=== PATIENT | female | born 1960 | race Caucasian/White ===

== ENCOUNTER 2017-10-09 00:28 | Emergency (ER) | payer BC ==
[~2017-10-09] VITALS: Ht 160 cm; Wt 69.8 kg
[~2017-10-09 00:28] MED LIST: Acetaminophen1 EAC2 PO; Aspir 8181 MG PO; CHOL10002; CRANBERRY250 MG; LEVSOD25 PO; LORA.5 PO; MECL25 PO; OMEP20ER PO; Prinivil10 MG PO; RIFA300 PO; TYLECOD3 PO
[2017-10-09 01:02] LABS: Source, Urine Clean Catch
[2017-10-09 01:04] LABS: Bilirubin, Urine Neg (Neg); Blood, Urine 5+ (Neg); Glucose Qualitative, Urine Neg (Neg); Ketones, Urine Neg (Neg); Leukocyte Esterase, Urine 3+ (Neg); Nitrite, Urine Neg (Neg); Protein, Urine 1+ (Neg); Specific Gravity, Urine 1.005 (1.003-1.022); Urobilinogen, Urine NORM (Normal); pH, Urine 6.5 (5.0-8.0)
[2017-10-09] MEDS ORDERED: Pyridium200 MG PO (01:04)
[2017-10-09] MEDS ORDERED: Cefpodoxime Pr100 MG PO (01:04)
[2017-10-09 01:18] LABS: Appearance, Urine Hazy (Clear); Bacteria Few /hpf; Color, Urine Pale Yellow (P-Yellow); Red Blood Cells, Urine 0-2 /hpf (0-2); Squamous Epithelial Cells Rare /hpf (Few); White Blood Cells, Urine TNTC /hpf (0-5)
[2018-03-04] MEDS ORDERED: ASPI81CH PO (12:18)
[2018-03-04] MEDS ORDERED: ACYC400 (12:18)
[2018-03-04] MEDS ORDERED: Advil Pm Liqui1 EACH PO (12:19)
[2018-03-04] MEDS ORDERED: VITAMIN B-121000 MCG (12:20)
[2018-03-04] MEDS ORDERED: TYLECOD3 (12:21)
[2018-06-17] MEDS ORDERED: B Complex #11 EACH PO (11:35)
[2018-06-17] MEDS ORDERED: Aspir 8181 MG PO (11:35)
[2018-06-25] MEDS ORDERED: ACYC400 PO (07:17)
== END 2017-10-09 01:37 | disposition home or self-care (01) ==
LOC: ER 00:28
PROVIDERS: Physician Assistant
DX: N39.0 Urinary tract infection, site not specified (principal); Z88.2 Allergy status to sulfonamides; Z88.1 Allergy status to other antibiotic agents; Z88.8 Allergy status to other drugs, medicaments and biological substances; Z79.899 Other long term (current) drug therapy; I10 Essential (primary) hypertension; E03.9 Hypothyroidism, unspecified
CPT/HCPCS: 81001; 87077; 87086; 87186; 99283

== ENCOUNTER 2019-07-15 06:16 | Day surgery (SDC) | payer BC ==
[~2019-07-15 06:16] MED LIST changes: +ACYC400; +ACYC400 PO; +ASPI81CH PO; +Advil Pm Liqui1 EACH PO; +Aspir 8181 MG; +B Complex #11 EACH PO; +Cefpodoxime Pr100 MG PO; +Celebrex200 MG; +Pyridium200 MG PO; +TYLECOD3; +VITAMIN B-121000 MCG
--- NOTE | 2019-07-15 07:09 | NUR ---
07/15/19 0709 KEVIN HUTCHINSON PATIENT'S SPOUSE AT BEDSIDE. PATIENT READY FOR OR. POST OP TEACHING PERFORMED WITH PATIENT AND SPOUSE - DENY QUESTIONS ABOUT TEACHING.
--- NOTE | 2019-07-15 08:17 | NUR ---
07/15/19 0817 Tatiana Roberts INTRASCALING BLOCK PLACED IN OR WITHOUT DIFFICULTY. PT TOLERATED PROCEDURE WELL.
--- NOTE | 2019-07-15 10:10 | NUR ---
07/15/19 1010 [place] Walls UP TO [facility] FOR STOOL.
== END 2019-07-15 11:15 | disposition home or self-care (01) ==
LOC: ORSCSDS 06:16
PROVIDERS: Orthopaedic Surgery
PROC: 0LQ24ZZ Repair Left Shoulder Tendon, Percutaneous Endoscopic Approach (ICD-10-PCS; principal; 2019-07-15 07:30)
PROC: 0RNK4ZZ Release Left Shoulder Joint, Percutaneous Endoscopic Approach (ICD-10-PCS; principal; 2019-07-15 07:30)
PROC: 0RBK4ZZ Excision of Left Shoulder Joint, Percutaneous Endoscopic Approach (ICD-10-PCS; principal; 2019-07-15 07:30)
DX: M75.122 Complete rotator cuff tear or rupture of left shoulder, not specified as traumatic (principal); M75.42 Impingement syndrome of left shoulder; M75.22 Bicipital tendinitis, left shoulder; I10 Essential (primary) hypertension; G47.33 Obstructive sleep apnea (adult) (pediatric); Z79.899 Other long term (current) drug therapy
CPT/HCPCS: C1713; J0171; J0690; J2250; J2370; J2405; J2704; J2765; J2795; J3010; J7120

== ENCOUNTER 2021-02-02 10:46 | Day surgery (SDC) | payer BC ==
[~2021-02-02] VITALS: Ht 160 cm; Wt 74.0 kg
[2021-02-02] MEDS ORDERED: ATORVASTATIN CA10 MG (11:13)
== END 2021-02-02 12:58 | disposition home or self-care (01) ==
LOC: ORSCSDS 10:46
PROVIDERS: Internal Medicine Gastroenterology
PROC: 0D757ZZ Dilation of Esophagus, Via Natural or Artificial Opening (ICD-10-PCS; principal; 2021-02-02 12:00)
PROC: 0DJ08ZZ Inspection of Upper Intestinal Tract, Via Natural or Artificial Opening Endoscopic (ICD-10-PCS; principal; 2021-02-02 12:00)
DX: R13.14 Dysphagia, pharyngoesophageal phase (principal); K21.9 Gastro-esophageal reflux disease without esophagitis; R10.13 Epigastric pain; K44.9 Diaphragmatic hernia without obstruction or gangrene; K29.70 Gastritis, unspecified, without bleeding; K22.2 Esophageal obstruction; I10 Essential (primary) hypertension; E03.9 Hypothyroidism, unspecified; J45.909 Unspecified asthma, uncomplicated; Z79.899 Other long term (current) drug therapy
CPT/HCPCS: 88305; 88342; J2405; J2704; J7120

== ENCOUNTER → 2021-05-03 | Outpatient (CLI) | payer BC ==
[~2021-05-03] MED LIST changes: +ATORVASTATIN CA10 MG
[2021-05-07 14:08] LABS: HPV 16 Negative (Negative); HPV 18 Negative (Negative); HPV OTHER HR TYPES Negative (Negative)
== END | disposition home or self-care (01) ==
LOC: LAB 07:30 → LAB SHORT 07:30
PROVIDERS: Internal Medicine
DX: Z12.4 Encounter for screening for malignant neoplasm of cervix (principal)
CPT/HCPCS: 87624; G0145

== ENCOUNTER 2022-12-16 08:21 | Day surgery (SDC) | payer OTHER ==
[~2022-12-16] VITALS: Ht 160 cm; Wt 72.1 kg
[2022-12-16] MEDS ORDERED: CLIMARA1 EACH (08:43)
[2022-12-16 10:24] VITALS: BP 112/66
--- NOTE | 2022-12-16 10:28 | NUR ---
12/16/22 1028 Chloe Martel IV DC'D, CATH INTACT. COBAN/GAUZE APPLIED. PT TOLERATED WELL.
== END 2022-12-16 10:26 | disposition home or self-care (01) ==
LOC: ORSCSDS 08:21
PROVIDERS: Internal Medicine Gastroenterology
PROC: 0DJD8ZZ Inspection of Lower Intestinal Tract, Via Natural or Artificial Opening Endoscopic (ICD-10-PCS; principal; 2022-12-16 09:45)
DX: Z12.11 Encounter for screening for malignant neoplasm of colon (principal); Z86.010 Personal history of colon polyps; K21.9 Gastro-esophageal reflux disease without esophagitis; K56.609 Unspecified intestinal obstruction, unspecified as to partial versus complete obstruction; Z79.899 Other long term (current) drug therapy
CPT/HCPCS: J2704; J7120

== ENCOUNTER → 2024-07-14 | Outpatient (CLI) | payer MEDICARE ==
[~2024-07-14] MED LIST changes: +CLIMARA1 EACH
[2024-07-14 11:40] LABS: Source, Urine Clean Catch
[2024-07-14 13:22] LABS: Appearance, Urine Clear (Clear); Blood, Urine 1+ (Neg); Color, Urine Amber (P-Yellow); Glucose Qualitative, Urine Neg (Neg); Ketones, Urine Neg (Neg); Leukocyte Esterase, Urine Neg (Neg); Nitrite, Urine Pos (Neg); Protein, Urine Neg (Neg); Urobilinogen, Urine 2+ (Normal)
[2024-07-14 13:43] LABS: Bilirubin, Urine 1+ (Neg)
[2024-07-14 13:48] LABS: Bacteria Mod /hpf; Squamous Epithelial Cells Few /hpf (Few); White Blood Cells, Urine 0-2 /hpf (0-5)
== END | disposition home or self-care (01) ==
LOC: LAB SHORT 11:39 → LAB 11:39
PROVIDERS: Internal Medicine
DX: R30.0 Dysuria (principal)
CPT/HCPCS: 81001; 87086